=== PATIENT | female | born 1980 | race Caucasian/White ===

== ENCOUNTER 2021-01-27 06:13 | Emergency (ER) | payer OTHER ==
[~2021-01-27 06:13] MED LIST: CYCLOBENZAPRINE10 MG PO; FIORICET1 EACH PO; MEDROL 4MG DOSEP4 MG PO; TRAMADOL HCL50 MG PO
[2021-01-27] MEDS ORDERED: DICLOFENAC SODI75 MG PO (06:56)
[2021-01-27] MEDS ORDERED: ROBITUSSIN W/COD5 ML PO (07:03)
[2021-01-27] MEDS ORDERED: ZPAK PO (07:05)
[2021-01-27 07:08] LABS: BASOPHIL 0.4 % (0-2); EOSINOPHIL 2.5 % (0-5); HCT 41.6 % (37.0-47.0); HGB 13.7 g/dl (12.5-16.0); LYMPHOCYTE 24.3 % (15-48); MCH 28.8 pg (25.0-31.0); MCHC 32.9 g/dL (32.0-36.0); MCV 87.4 fL (78.0-100.0); MONOCYTE 6.9 % (0-12); MPV 10.5 fL (6.0-9.5); NEUTROPHIL 65.5 % (41-80); NRBC 0; PLT 266 K/uL (150-400); RBC 4.76 M/uL (4.20-5.40); RDW 14.5 % (11.5-14.0); WBC 8.5 K/uL (4.0-10.5)
[2021-01-27 07:32] LABS: BUN/CREAT RATIO (CALC) 18.1 RATIO; CREATININE 0.72 mg/dL (0.51-0.95); POTASSIUM 4.3 mmol/L (3.5-5.1)
== END 2021-01-27 07:25 | disposition home or self-care (01) ==
LOC: FER 06:13
PROVIDERS: Emergency Medicine
DX: R07.89 Other chest pain (principal); R05 Cough; I10 Essential (primary) hypertension; Z98.890 Other specified postprocedural states; Z88.2 Allergy status to sulfonamides; Z79.899 Other long term (current) drug therapy; Z88.8 Allergy status to other drugs, medicaments and biological substances
CPT/HCPCS: 36415; 71100; 80048; 85025; J1885

== ENCOUNTER 2021-05-12 09:41 | Emergency (ER) | payer OTHER ==
[~2021-05-12 09:41] MED LIST changes: +DICLOFENAC SODI75 MG PO; +ROBITUSSIN W/COD5 ML PO; +ZPAK PO
[2021-05-12] MEDS ORDERED: KEFLEX750 MG PO (14:11)
[2021-05-12] MEDS ORDERED: NORCO 5-325 TA1 EACH PO (14:11)
[2021-05-12] MEDS ORDERED: ROBAXIN750 MG PO (14:11)
== END 2021-05-12 14:20 | disposition home or self-care (01) ==
LOC: FER 09:41
DX: S29.9XXA Unspecified injury of thorax, initial encounter (principal); Z88.2 Allergy status to sulfonamides; Z88.8 Allergy status to other drugs, medicaments and biological substances; X58.XXXA Exposure to other specified factors, initial encounter
CPT/HCPCS: 71250; 93005